=== PATIENT | male | born 1950 | race Caucasian/White ===

== ENCOUNTER 2019-03-05 09:22 | Emergency (ER) | payer OTHER ==
[~2019-03-05] VITALS: Ht 175.3 cm; Wt 92.5 kg
[2019-03-05 09:29] VITALS: Ht 175.3 cm; Wt 92.5 kg
[2019-03-05 16:05] VITALS: BP 153/85
== END 2019-03-05 16:05 | disposition home or self-care (01) ==
LOC: ED 09:22
DX: S93.602A Unspecified sprain of left foot, initial encounter (principal); M79.89 Other specified soft tissue disorders; I10 Essential (primary) hypertension; Z88.0 Allergy status to penicillin; W18.30XA Fall on same level, unspecified, initial encounter; Y93.89 Activity, other specified; Y92.89 Other specified places as the place of occurrence of the external cause; Y99.8 Other external cause status
CPT/HCPCS: Q0092